=== PATIENT | male | born 1950 | race Caucasian/White ===

== ENCOUNTER 2023-09-07 08:23 | Outpatient (CLI) | payer MEDICARE, BC ==
[~2023-09-07 08:23] MED LIST: GABA-532 PO; IBUP-1984 PO; PANT40TA54 PO; PER10325T PO
== END 2023-09-07 23:59 | disposition home or self-care (01) ==
LOC: RAD 08:23
PROVIDERS: ATTEND Podiatrist Foot & Ankle Surgery
DX: M65.872 Other synovitis and tenosynovitis, left ankle and foot (principal); M21.6X2 Other acquired deformities of left foot; M19.072 Primary osteoarthritis, left ankle and foot; M79.672 Pain in left foot; M72.2 Plantar fascial fibromatosis; Z72.0 Tobacco use; M25.552 Pain in left hip; M16.12 Unilateral primary osteoarthritis, left hip; M46.1 Sacroiliitis, not elsewhere classified; M25.551 Pain in right hip
CPT/HCPCS: 73721

== ENCOUNTER 2023-11-10 09:42 | Outpatient (CLI) | payer MEDICARE, BC | END 2023-11-10 23:59 | disposition home or self-care (01) | LOC: RAD 09:42 | PROVIDERS: ATTEND Podiatrist Foot & Ankle Surgery | DX: M19.072 Primary osteoarthritis, left ankle and foot (principal); M79.672 Pain in left foot; M72.2 Plantar fascial fibromatosis; Z72.0 Tobacco use; M25.552 Pain in left hip; M16.12 Unilateral primary osteoarthritis, left hip; M46.1 Sacroiliitis, not elsewhere classified; M25.551 Pain in right hip; M70.62 Trochanteric bursitis, left hip; M25.50 Pain in unspecified joint; M24.675 Ankylosis, left foot; M20.42 Other hammer toe(s) (acquired), left foot; Z98.890 Other specified postprocedural states | CPT/HCPCS: 73700 ==

== ENCOUNTER 2024-04-18 13:32 | Outpatient (CLI) | payer MEDICARE, BC | END 2024-04-18 23:59 | disposition home or self-care (01) | LOC: MRI02 13:32 | PROVIDERS: ATTEND Pediatrics Sports Medicine | DX: M47.816 Spondylosis without myelopathy or radiculopathy, lumbar region (principal); M48.07 Spinal stenosis, lumbosacral region; M43.15 Spondylolisthesis, thoracolumbar region; M46.1 Sacroiliitis, not elsewhere classified | CPT/HCPCS: 72148 ==

== ENCOUNTER 2024-07-30 09:54 | Emergency (ER) | payer MEDICARE, BC ==
[~2024-07-30] VITALS: Ht 182.9 cm; Wt 90.9 kg
[2024-07-30 10:11] VITALS: TEMP 97
[2024-07-30 11:32] VITALS: BP 113/81; PULSE 73; RESP 16; O2SAT 93
[2024-07-30] MEDS ORDERED: ALBU18HF2 INH (11:44)
[2024-07-30] MEDS ORDERED: GUAI120015 PO (11:44)
[2024-07-30] MEDS ORDERED: METH2TAB PO (11:44)
== END 2024-07-30 11:50 | disposition home or self-care (01) ==
LOC: ER 09:55
DX: J20.9 Acute bronchitis, unspecified (principal); R01.1 Cardiac murmur, unspecified; Z95.1 Presence of aortocoronary bypass graft; Z79.899 Other long term (current) drug therapy
CPT/HCPCS: 71045; 99283

== ENCOUNTER 2024-10-02 10:09 | Outpatient (CLI) | payer MEDICARE, BC ==
[~2024-10-02 10:09] MED LIST changes: +ALBU18HF2 INH; +GUAI120015 PO; +METH2TAB PO
== END 2024-10-02 23:59 | disposition home or self-care (01) ==
LOC: RAD 10:09
PROVIDERS: ATTEND Orthopaedic Surgery
DX: K57.30 Diverticulosis of large intestine without perforation or abscess without bleeding (principal); Z96.642 Presence of left artificial hip joint; M25.552 Pain in left hip; I25.10 Atherosclerotic heart disease of native coronary artery without angina pectoris; I70.0 Atherosclerosis of aorta
CPT/HCPCS: 71260; 72192; 74177

== ENCOUNTER 2025-05-21 13:02 | Outpatient (CLI) | payer MEDICARE, BC ==
--- NOTE | 2025-05-21 16:53 | RADIOLOGY REPORT ---
EXAM: CT CT LOWER EXTREMITY INDICATION: EFFUSION, LEFT ANKLE TECHNIQUE: Axial images of left ankle have been obtained along with coronal and sagittal reformatted images. All CT scans at this facility use dose modulation, iterative reconstruction, and/or weight based dosing when appropriate to reduce radiation dose to as low as reasonably achievable. COMPARISON: CT CT LOWER EXTREMITY on DOS: 11/10/23 FINDINGS: BONES: No CT evidence of an acute fracture or aggressive osseous lesion. Hardware placement of the midfoot, calcaneus, through the posterior subtalar joint and across the syndesmosis with laterally applied plate and screw construct along the distal fibula. Suspected cement of the level of the distal tibia. Partial developing osseous fusion across the posterior subtalar joint. Midfoot collapse with pes planus. Charcot arthropathy of the midfoot. No definitive CT evidence of area of fracture of the hardware. 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 Fragmentation of the navic ular bone width bone stock loss which may be related to surgical removal. Bridging periosteal reaction likely compatible developing osseous fusion across the distal tibia and fibula. Prior deltoid avulsive ligamentous injury. MUSCLES: Mild fatty infiltration along the intrinsic musculature of the hindfoot and forefoot JOINT SPACES: No joint effusion. TENDONS/LIGAMENTS: Limited evaluation without large amount of tenosynovitis OTHER: None. IMPRESSION: 1. No CT evidence of an acute fracture. 2. Hardware placement of the midfoot, calcaneus, through the posterior subtalar joint and across the syndesmosis with laterally applied plate and screw construct along the distal fibula. 3. Suspected cement of the level of the distal tibia. 4. Partial developing osseous fusion across the posterior subtalar joint. 5. Midfoot collapse with pes planus. Charcot arthropathy of the midfoot. 6. No definitive CT evidence of area of fracture of the hardware. 7. 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 8. Fragmentation of the navicular bone width bone stock loss which may be related to surgical removal. 9. Bridging periosteal reaction likely compatible developing osseous fusion across the distal tibia and fibula.
== END 2025-05-21 23:59 | disposition home or self-care (01) ==
LOC: RAD 13:02
PROVIDERS: ATTEND Orthopaedic Surgery Foot and Ankle Surgery
DX: T84.84XA Pain due to internal orthopedic prosthetic devices, implants and grafts, initial encounter (principal); M19.072 Primary osteoarthritis, left ankle and foot; M25.472 Effusion, left ankle; M25.471 Effusion, right ankle; M21.42 Flat foot [pes planus] (acquired), left foot; X58.XXXA Exposure to other specified factors, initial encounter; Y93.89 Activity, other specified; Y92.89 Other specified places as the place of occurrence of the external cause; Y99.8 Other external cause status
CPT/HCPCS: 73700